=== PATIENT | female | born 1970 | race African-American/Black ===

== ENCOUNTER 2018-12-31 04:46 | Emergency (ER) | payer MEDICAID ==
[~2018-12-31] VITALS: Ht 170.2 cm; Wt 86.0 kg
[2018-12-31] MEDS ORDERED: ASPIRIN 81MG TABLET PO ONE (05:15)
[2018-12-31] MEDS: ONDANSETRON HCL 4MG/2ML INJ IV PRN ×3 (05:19→07:08)
[2018-12-31 05:37] LABS: BASOPHILS % 0.7 % (0.0-2.0); EOSINOPHILS % 1.3 % (0.0-5.0); HEMATOCRIT. 42.9 % (36.0-48.0); HEMOGLOBIN. 14.6 g/dL (12.0-16.0); LYMPHOCYTES % 24.1 % (20.0-50.0); MEAN CORPUSCULAR HEMOGLOBIN 30.3 pg (28.0-32.0); MEAN CORPUSCULAR VOLUME 89.3 fL (81.0-99.0); MEAN PLATELET VOLUME 7.8 fl (7.4-10.4); MONOCYTES % 14.1 % (2.0-8.0); NEUTROPHILS % 59.8 % (40.0-76.0); PLATELET 253 x1000/uL (130-400); RED BLOOD CELL COUNT 4.81 mill/uL (4.2-5.4); RED CELL DISTRIBUTION WIDTH 13.3 % (11.6-14.6)
[2018-12-31 05:43] LABS: CHLORIDE 108 mEq/L (98-107)
[2018-12-31] MEDS ORDERED: KETOROLAC 15MG/ML VIAL IV ONE (07:00)
[2018-12-31 10:21] VITALS: BP 130/82
== END 2018-12-31 10:26 | disposition home or self-care (01) ==
LOC: ER 04:46
DX: R07.89 Other chest pain (principal); F12.10 Cannabis abuse, uncomplicated; F17.210 Nicotine dependence, cigarettes, uncomplicated
CPT/HCPCS: 36415; 71045; 80053; 83880; 84484; 85025; 85379; 93005; 96374; 96375; 99284; J1885; J2405; Z7610